=== PATIENT | female | born 1940 | race Caucasian/White ===

== ENCOUNTER → 2019-08-28 12:37 | Outpatient (BNVA) | payer MEDICARE, SELFPAY | PROVIDERS: Family Provider Family Medicine; PCP Family Medicine; Visit Provider Nurse Practitioner Family | DX: R07.9 Chest pain, unspecified (principal) | CPT/HCPCS: 80048 ==

== ENCOUNTER → 2019-09-04 09:17 | Outpatient (BNVA) | payer MEDICARE, SELFPAY | PROVIDERS: Family Provider Family Medicine; PCP Family Medicine; Visit Provider Internal Medicine Cardiovascular Disease | DX: I25.10 Atherosclerotic heart disease of native coronary artery without angina pectoris (principal) | CPT/HCPCS: 80048 ==

== ENCOUNTER 2021-03-12 22:31 | Emergency (ER) | payer MEDICARE, SELFPAY ==
[2021-03-12 22:36] VITALS: BP 119/56; PULSE 58; RESP 16; TEMP 36.4; O2SAT 98; BMI 30.2
--- NOTE | 2021-03-12 22:50 | ED_ITS ---
HPI - Altered Mental Status General: Chief Complaint: Altered Mental Status Stated Complaint: ALOC/ NOT EATING OR DRINKING Time Seen by Provider: 03/12/21 22:45 History of Present Illness: HPI narrative: 81-year-old female with a history of some dementia evidently. She also has hypertension, diabetes, and heart failure. She presents with appear to confusion at home. Her is in the hospital with COVID-19. complaint: altered mental status and confusion Review of Systems Const: Reports: body aches; Denies: fever(s) Card: Denies: chest pain Resp: Denies: dyspnea or productive cough GI: Reports: nausea; Denies: abdominal pain Neuro: Reports: confusion PFS ED PFSH: Medical History (Updated 03/13/21 @ 02:39 by Natan Jackson DO) ASHD (arteriosclerotic heart disease) Chronic kidney disease CVA (cerebral vascular accident) Ischemic cardiomyopathy Rheumatoid arthritis Surgical History S/P CABG x [address] [facility]: FREEMAN to LAD, saphenous vein graft to second obtuse marginal, saphenous vein graft to distal RCA Family History Mother Diabetes Hypertension Sister Diabetes Denies family history of CAD (coronary artery disease) Clotting disorder Dementia Hyperlipidemia Psychiatric illness Chronic kidney disease (CKD) Suicide Anesthesia complication Bleeding disorder Family history of premature coronary artery disease Lung disease Cancer Stroke Social History Smoking and tobacco status: former smoker Second hand smoke exposure: No Alcohol intake: former Physical Exam Const: COMMON NORMALS: no acute distress and alert GENERAL APPEARANCE: cooperative; not lethargic ORIENTATION/CONSCIOUSNESS: Yes awake, Yes oriented to person and Yes confused; not oriented to place, not oriented to time and not lethargic Eye: COMMON NORMALS: Equal, round and reactive pupils present and EOMs intact bilaterally PUPIL: Yes Equal, round and reactive pupils present Chest: COMMONS NORMALS: normal inspection of the chest Resp: COMMON NORMALS: normal respiratory effort, No use of accessory muscles and clear to auscultation bilaterally AUSCULTATION: clear to auscultation bilaterally Cardio: COMMON NORMALS: regular rate and regular rhythm RATE: regular rate RHYTHM: regular rhythm GI: COMMON NORMALS: Normal to inspection, nondistended, normoactive bowel sounds present, Soft to palpation and non-tender PALPATION: Yes Soft to palpation Neuro: SENSORIUM/ORIENTATION: Yes alert, Yes oriented to person, No oriented to place, No oriented to time and No lethargic Course Vital Signs: Vital signs: Vital Signs Temperature 97.8 F 03/13/21 02:19 Pulse Rate 58 L 03/13/21 02:19 Respiratory Rate 18 03/13/21 02:19 Blood Pressure 106/56 03/13/21 02:19 Pulse Oximetry 97 03/13/21 02:19 MDM - Altered Mental Status MDM Narrative: Medical decision making narrative: 81-year-old female who appears to be now back at her baseline. Her heart rate is 60. Blood pressure 120/55. Oxygen saturations are 97 to 98% on room air. She is not tachypneic. Her belly is nontender. She has had some nausea here. Her BUN and creatinine are elevated above her baseline slightly. She is positive by rapid antigen testing for COVID-19 here. Her chest x-ray is negative. Since she is not requiring oxygen, she has been given the monoclonal antibody infusion. She has been observed afterwards and is done well with that. Her daughter has been notified, and will be present on discharge. Lab Data: Labs: Lab Results 03/12/21 03/12/21 03/12/21 Range/Units 23:15 23:25 23:25 WBC 4.6 (4.0-10.0) 10^3/ uL RBC 4.20 (4.1-5.3) 10^6/u L Hgb 12.1 (11.5-15.3) g/dL Hct 37.8 (37.0-47.0) % MCV 90.0 (81-99) fl MCH 28.8 (28.0-34.0) pg MCHC 32.0 (30.0-36.0) g/dL RDW 14.7 (12.1-15.1) % Plt Count 199 (130-400) 10^3/c mm MPV 10.9 H (7.4-10.4) fL Neut % (Auto) 67.1 % Lymph % (Auto) 22.9 % [place] % (Auto) 9.6 % Eos % (Auto) 0.0 % Baso % (Auto) 0.2 % Neut # (Auto) 3.07 (1.8-7.7) 10^3/u L Lymph # (Auto) 1.1 (0.8-4.8) 10^3/u L [place] # (Auto) 0.4 (0.2-0.9) 10^3/u L Eos # (Auto) 0.0 (0.0-0.8) 10^3/u L Baso # (Auto) 0.0 (0.0-0.1) 10^3/u L Nucleated RBC % (a uto) 0 % Nucleated RBCs # 0.0 /100WBC D-Dimer 1.01 H (0-0.59) ug/mIFE U Sodium (136-145) mmol/L Potassium (3.5-5.1) mmol/L Chloride (98-107) mmol/L Carbon Dioxide (22-29) mmol/L Anion Gap (5-19) BUN (8-23) mg/dL Creatinine (0.5-0.9) mg/dL GFR Calculation Glucose (65-115) mg/dL Calculated Osmolal ity (285-295) mOsm/k g Lactic Acid (0.5-2.2) mmol/L Calcium (8.5-10.5) mg/dL Total Bilirubin (0.15-1.2) mg/dL AST (0-32) U/L ALT (0-33) U/L Alkaline Phosphata se (35-105) IU/L Creatine Kinase (26-192) U/L Troponin T Baselin e (0-10) ng/L Troponin T 120 Min [place] (0-10) ng/L Delta Troponin T (0-10) ABS# C-Reactive Protein (0.0-4.9) mg/L NT-Pro-B Natriuret Pep (0-450) pg/mL Total Protein (6.6-8.7) g/dL Albumin (3.5-5.2) g/dL Globulin (1.3-4.6) g/dL Procalcitonin (0-0.5) ng/mL SARS-CoV-2 Ag (Rap id) Positive H (Negative) 09/04/21 09/04/21 09/04/21 Range/Units 23:25 23:25 23:25 WBC (4.0-10.0) 10^3/ uL RBC (4.1-5.3) 10^6/u L Hgb (11.5-15.3) g/dL Hct (37.0-47.0) % MCV (81-99) fl MCH (28.0-34.0) pg MCHC (30.0-36.0) g/dL RDW (12.1-15.1) % Plt Count (130-400) 10^3/c mm MPV (7.4-10.4) fL Neut % (Auto) % Lymph % (Auto) % [place] % (Auto) % Eos % (Auto) % Baso % (Auto) % Neut # (Auto) (1.8-7.7) 10^3/u L Lymph # (Auto) (0.8-4.8) 10^3/u L [place] # (Auto) (0.2-0.9) 10^3/u L Eos # (Auto) (0.0-0.8) 10^3/u L Baso # (Auto) (0.0-0.1) 10^3/u L Nucleated RBC % (a uto) % Nucleated RBCs # /100WBC D-Dimer (0-0.59) ug/mIFE U Sodium 138 (136-145) mmol/L Potassium 4.3 (3.5-5.1) mmol/L Chloride 104 (98-107) mmol/L Carbon Dioxide 18 L (22-29) mmol/L Anion Gap 20.3 H (5-19) BUN 44 H (8-23) mg/dL Creatinine 2.0 H (0.5-0.9) mg/dL GFR Calculation Not Reportable Glucose 50 L (65-115) mg/dL Calculated Osmolal ity 294 (285-295) mOsm/k g Lactic Acid 0.9 (0.5-2.2) mmol/L Calcium 8.0 L (8.5-10.5) mg/dL Total Bilirubin 0.4 (0.15-1.2) mg/dL AST 32 (0-32) U/L ALT 14 (0-33) U/L Alkaline Phosphata se 73 (35-105) IU/L Creatine Kinase 84 (26-192) U/L Troponin T Baselin e 42 H (0-10) ng/L Troponin T 120 Min [place] (0-10) ng/L Delta Troponin T (0-10) ABS# C-Reactive Protein 5.4 H (0.0-4.9) mg/L NT-Pro-B Natriuret Pep 8958 H (0-450) pg/mL Total Protein 6.0 L (6.6-8.7) g/dL Albumin 3.7 (3.5-5.2) g/dL Globulin 2.3 (1.3-4.6) g/dL Procalcitonin 0.09 (0-0.5) ng/mL SARS-CoV-2 Ag (Rap id) (Negative) 03/13/21 Range/Units 01:22 WBC (4.0-10.0) 10^3/ uL RBC (4.1-5.3) 10^6/u L Hgb (11.5-15.3) g/dL Hct (37.0-47.0) % MCV (81-99) fl MCH (28.0-34.0) pg MCHC (30.0-36.0) g/dL RDW (12.1-15.1) % Plt Count (130-400) 10^3/c mm MPV (7.4-10.4) fL Neut % (Auto) % Lymph % (Auto) % [place] % (Auto) % Eos % (Auto) % Baso % (Auto) % Neut # (Auto) (1.8-7.7) 10^3/u L Lymph # (Auto) (0.8-4.8) 10^3/u L [place] # (Auto) (0.2-0.9) 10^3/u L Eos # (Auto) (0.0-0.8) 10^3/u L Baso # (Auto) (0.0-0.1) 10^3/u L Nucleated RBC % (a uto) % Nucleated RBCs # /100WBC D-Dimer (0-0.59) ug/mIFE U Sodium (136-145) mmol/L Potassium (3.5-5.1) mmol/L Chloride (98-107) mmol/L Carbon Dioxide (22-29) mmol/L Anion Gap (5-19) BUN (8-23) mg/dL Creatinine (0.5-0.9) mg/dL GFR Calculation Glucose (65-115) mg/dL Calculated Osmolal ity (285-295) mOsm/k g Lactic Acid (0.5-2.2) mmol/L Calcium (8.5-10.5) mg/dL Total Bilirubin (0.15-1.2) mg/dL AST (0-32) U/L ALT (0-33) U/L Alkaline Phosphata se (35-105) IU/L Creatine Kinase (26-192) U/L Troponin T Baselin e (0-10) ng/L Troponin T 120 Min [place] 43.09 H (0-10) ng/L Delta Troponin T 1.09 (0-10) ABS# C-Reactive Protein (0.0-4.9) mg/L NT-Pro-B Natriuret Pep (0-450) pg/mL Total Protein (6.6-8.7) g/dL Albumin (3.5-5.2) g/dL Globulin (1.3-4.6) g/dL Procalcitonin (0-0.5) ng/mL SARS-CoV-2 Ag (Rap id) (Negative) Discharge Plan Discharge Patient Disposition: Home Clinical Impression: COVID-19 Condition: Stable Prescriptions: New Zofran 4 mg tablet 4 mg PO Q6H PRN (Reason: nausea and vomiting) Qty: 10 RF: 0 No Action clopidogrel [Plavix] 75 mg tablet 75 mg PO DAILY RF: 0 glipizide 5 mg tablet 5 mg PO DAILY RF: 0 atorvastatin [Lipitor] 40 mg tablet 40 mg PO DAILY RF: 0 enalapril maleate [Vasotec] 5 mg tablet 5 mg PO BID RF: 0 aspirin [Adult Aspirin Regimen] 81 mg tablet,delayed release (DR/EC) 81 mg PO .COMPLEX RF: 0 calcium carbonate-vitamin D3 [Calcium 500 With D] 500 mg(1,250mg) -400 unit tablet 1 tab PO DAILY RF: 0 (DME) Hydroxychoroquine Qty: 1 RF: 0 levothyroxine 75 mcg capsule 75 mcg PO DAILY RF: 0 pantoprazole 20 mg tablet,delayed release (DR/EC) 20 mg PO DAILY RF: 0 (DME) hydocodone/acetaminophin Qty: 1 RF: 0 enalapril maleate 10 mg tablet 10 mg PO BID Qty: 60 RF: 11 carvedilol 6.25 mg tablet See Rx Instructions .ROUTE .COMPLEX Qty: 180 RF: 3 furosemide 40 mg tablet See Rx Instructions .ROUTE .COMPLEX Qty: 90 RF: 3 Discharge Orders: Discharge ED (Routine); Ordered 03/13/21 Ordered By: Natan Jackson Referrals: Rafael Higgins [Primary Care Provider] - 1-3 days Activity Restrictions/Additional Instructions: Return for worsening mental status, weakness, shortness of breath, other concerning symptoms. You were given the monoclonal antibody to help stop replication of the virus in your system. Coding Level of Care Code ED Head Of Sales And Marketing for Chelly Thakur
--- NOTE | 2021-03-12 22:51 | XRR_ITS ---
PROCEDURE INFORMATION: Exam: XR Chest Exam date and time: 03/12/2021 10:51 PM Age: 81 years old Clinical indication: Other: AMS; Prior surgery; Surgery date: 6+ months; Surgery type: Cabg TECHNIQUE: Imaging protocol: XR of the chest. Views: 1 view. COMPARISON: No relevant prior studies available. FINDINGS: Lungs: No consolidative pulmonary infiltrates are noted. Pleural spaces: No pleural effusion. No pneumothorax. Heart/Mediastinum: Mediastinal surgical clips are noted, consistent with previous CABG. Bones/joints: Median sternotomy noted. XR/XR chest 1V portable [id number] IMPRESSION: 1. Median sternotomy and CABG noted. 2. No acute abnormality demonstrated.
--- NOTE | 2021-03-12 22:52 | ECG_ITS ---
[facility] Test Date: 2021-03-12 Pat Name: Jemima Vazquez Department: Room: Gender: Female Ceo Ziff Davis: : 1940 Requested By: Natan Jay Order Number: [id number] Shlomo MD: DEV CONRAD Measurements Intervals [place] Rate: 53 P: VT: QRS: -60 QRSD: 183 T: 269 QT: 522 QTc: 494 Interpretive Statements Sinus bradycardia LEFT AXIS DEVIATION [QRS AXIS < -30] LEFT BUNDLE BRANCH BLOCK [120+ ms QRS DURATION, 80+ ms Q/S IN V1/V2, 85+ ms R IN I/aVL/V5/V6] No previous ECG available for comparison Electronically Signed On 03-13-2021 15:03:34 CDT by DEV CONRAD [id number]
[2021-03-12 23:33] LABS: Basophils % 0.2 %; Hematocrit 37.8 % (37.0-47.0); Hemoglobin 12.1 g/dL (11.5-15.3); Lymphocytes # 1.1 10^3/uL (0.8-4.8); Lymphocytes % 22.9 %; Mean Corpuscular Hemoglobin 28.8 pg (28.0-34.0); Mean Platelet Volume 10.9 fL (7.4-10.4); Monocytes # 0.4 10^3/uL (0.2-0.9); Monocytes % 9.6 %; Neutrophils # 3.07 10^3/uL (1.8-7.7); Neutrophils % 67.1 %; Nucleated Red Blood Cells % 0 %; Platelet Count 199 10^3/cmm (130-400); Red Cell Distribution Width 14.7 % (12.1-15.1); White Blood Count 4.6 10^3/uL (4.0-10.0)
--- NOTE | 2021-03-12 23:38 | CTR_ITS ---
PROCEDURE INFORMATION: Exam: CT Head Without Contrast Exam date and time: 03/12/2021 11:38 PM Age: 81 years old Clinical indication: Alteration of consciousness and altered mental status/memory loss; Somnolence (drowsiness); Confusion or disorientation; Patient HX: Ams/aloc TECHNIQUE: Imaging protocol: Computed tomography of the head without contrast. Radiation optimization: All CT scans at this facility use at least one of these dose optimization techniques: automated exposure control; mA and/or kV adjustment per patient size (includes targeted exams where dose is matched to clinical indication); or iterative reconstruction. COMPARISON: No relevant prior studies available. RADIATION DOSE METRICS: Total DLP (mGy-cm): 721.52 FINDINGS: Brain: Age related parenchymal volume loss noted. No significant white matter disease demonstrated. No parenchymal edema identified. No intracranial hemorrhage noted. Cerebral ventricles: No ventriculomegaly. Paranasal sinuses: Visualized sinuses are unremarkable. No fluid levels. Mastoid air cells: Unremarkable as visualized. No mastoid effusion. Bones/joints: Unremarkable. No acute fracture. Soft tissues: Unremarkable. CT/CT head wo con* [id number] IMPRESSION: No acute intracranial abnormality demonstrated. Radiation Dose CTDIVOL = (mGy): DLP = 721.52 (mGy-cm)
[2021-03-12 23:52] LABS: D Dimer 1.01 ug/mIFEU (0-0.59)
[2021-03-12 23:54] LABS: Troponin(5th) Baseline 42 ng/L (0-10)
[2021-03-12 23:55] LABS: Lactic Sepsis W/Reflex 0.9 mmol/L (0.5-2.2)
[2021-03-13 00:02] LABS: Procalcitonin 0.09 ng/mL (0-0.5)
[2021-03-13 00:13] LABS: Alanine Aminotransferase 14 U/L (0-33); Albumin Level 3.7 g/dL (3.5-5.2); Alkaline Phosphatase 73 IU/L (35-105); Aspartate Amino Transferase 32 U/L (0-32); Blood Urea Nitrogen 44 mg/dL (8-23); C Reactive Protein 5.4 mg/L (0.0-4.9); Carbon Dioxide 18 mmol/L (22-29); Chloride 104 mmol/L (98-107); Creatine Phosphokinase 84 U/L (26-192); Globulin 2.3 g/dL (1.3-4.6); Glucose 50 mg/dL (65-115); Osmolality Calculated 294 mOsm/kg (285-295); Sodium 138 mmol/L (136-145); Total Bilirubin 0.4 mg/dL (0.15-1.2)
[2021-03-13 00:19] LABS: Anion Gap 20.3 (5-19); Potassium 4.3 mmol/L (3.5-5.1)
[2021-03-13 00:28] VITALS: BP 156/86; PULSE 54; RESP 20; TEMP 36.8; O2SAT 100
[2021-03-13 00:36] LABS: NT Pro B Type Natriuretic Pept 8958 pg/mL (0-450)
[2021-03-13 00:36] LABS: SARS Covid-2 Antigen Positive (Negative)
--- NOTE | 2021-03-13 00:52 | ECG_ITS ---
[facility] Test Date: 2021-03-13 Pat Name: Jemima Vazquez Department: Room: Gender: Female In Shop Service Technician: : 1940 Requested By: Natan Jay Order Number: [id number] Shlomo MD: DEV CONRAD Measurements Intervals [place] Rate: 53 P: 74 ME: 220 QRS: -53 QRSD: 179 T: 218 QT: 510 QTc: 481 Interpretive Statements SINUS BRADYCARDIA WITH SINUS ARRHYTHMIA WITH FIRST DEGREE AV BLOCK LEFT AXIS DEVIATION [QRS AXIS < -30] LEFT BUNDLE BRANCH BLOCK [120+ ms QRS DURATION, 80+ ms Q/S IN V1/V2, 85+ ms R IN I/aVL/V5/V6] Compared to ECG 03/12/2021 23:02:17 First degree AV block now present Atrial fibrillation no longer present Electronically Signed On 03-13-2021 15:04:54 CDT by DEV CONRAD [id number]
[2021-03-13 01:54] LABS: Troponin 5 2HR 43.09 ng/L (0-10); Troponin 5 2HR Delta 1.09 ABS# (0-10)
[2021-03-13 01:56] VITALS: RESP 18
[2021-03-13] MEDS: ondansetron 2 mg/ML SDV 2 mL 4 MG IVP (01:56)
[2021-03-13] MEDS: morphine 4 mg/mL SDV 1 mL IVP (01:56)
[2021-03-13 02:19] VITALS: BP 106/56; PULSE 58; RESP 18; TEMP 36.6; O2SAT 97
[2021-03-13 04:43] VITALS: PULSE 64; O2SAT 96
== END 2021-03-13 04:45 | disposition home or self-care (01) ==
PROVIDERS: Emergency Provider Emergency Medicine; PCP Family Medicine
DX: U07.1 COVID-19 (principal); Z79.84 Long term (current) use of oral hypoglycemic drugs; Z79.02 Long term (current) use of antithrombotics/antiplatelets; Z79.82 Long term (current) use of aspirin; Z86.73 Personal history of transient ischemic attack (TIA), and cerebral infarction without residual deficits; Z95.1 Presence of aortocoronary bypass graft; Z87.891 Personal history of nicotine dependence; F03.90 Unspecified dementia, unspecified severity, without behavioral disturbance, psychotic disturbance, mood disturbance, and anxiety
CPT/HCPCS: 70450; 71045; 80053; 82550; 83605; 83880; 84145; 84484; 85025; 85378; 86140; 87426; 93005; 96365; 96375; 99284; J2270; J2405